=== PATIENT | male | born 1970 | race Caucasian/White ===

== ENCOUNTER → 2021-01-01 | Outpatient (CLI) | payer BC ==
--- NOTE | 2021-01-01 08:42 | CT ---
EXAMINATION TYPE: CT iac wo con DATE OF EXAM: 01/01/2021 COMPARISON: NONE HISTORY: Left ear hearing loss CT DLP: 150 mGycm. Automated Exposure Control for Dose Reduction was Utilized. TECHNIQUE: CT scan of internal auditory canal is performed without contrast, thin cut axial images ar e obtained, coronal reformatted images are also reviewed. FINDINGS: The external auditory canals are patent bilaterally. Mastoid air cells show no evidence of abnormal opacification bilaterally. The middle ear ossicles are symmetric and unremarkable. There is no evidence of suspicious surroundi ng soft tissue density to suggest cholesteatoma. The scutum is preserved bilaterally. The cochlea and the semicircular canals are symmetric . There is nonvisualized overlying bone involvi ng superior semicircular canal seen best on on coronal images 24 through 106, asymmetric versus the o pposite right side. Vestibular aqueduct and internal carotid canal appear unremarkable. Temporomandibular joints are maintained bilaterally. Mild mucosal thickening inferior bilateral maxil pao sinuses and anterior ethmoid sinuses bilaterally. Visualized portion brain parenchyma is felt wi thin normal limits. Globes are intact bilaterally. 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
== END ==
LOC: RADCTMAIN 07:51
PROVIDERS: ATTEND Otolaryngology
DX: H91.92 Unspecified hearing loss, left ear (principal)
CPT/HCPCS: 70480

== ENCOUNTER 2021-09-05 05:51 | Emergency (ER) | payer BC ==
[2021-09-05] MEDS ORDERED: ACETAMINOPHEN TAB 500 MG TAB PO STA (06:02)
[2021-09-05] MEDS ORDERED: SODIUM CHLORIDE 0.9% 50 ML IVPB ONE (06:30)
[2021-09-05] MEDS ORDERED: BAMLANIVIMAB (EUA) 700 MG, ETESEVIMAB (EUA) 1,400 MG in SODIUM CHLORIDE 0.9% 50 ML IVPB ONE (06:30)
--- NOTE | 2021-09-05 06:34 | ED ---
General Adult HPI - General Chief complaint: Upper Respiratory Infection Stated complaint: COVID+ Time Seen by Provider: 09/05/21 06:02 Source: patient Mode of arrival: ambulatory Limitations: no limitations - History of Present Illness Initial comments: 50-year-old male with a past medical history of presents to the emergency room for antibody infusion. Patient tested positive for Guzman virus yesterday after developing symptoms Friday night. Patient has been congested and has headaches. He has had low-grade fevers. He has been taking Motrin, no Tylenol yet. Patient was vaccinated for Guzman virus. Patient denies shortness of breath, minimal tightness. Denies chest pain. Patient has no other complaints at this time including shortness of breath, chest pain, abdominal pain, nausea or vomiting, headache, or visual changes. - Related Data Home Medications Medication Instructions Recorded Confirmed Escitalopram [Lexapro] 10 mg PO DAILY 11/29/14 11/29/14 Omeprazole [PriLOSEC] 10 mg PO AC-BRKFST 11/29/14 11/29/14 Previous Rx's Medication Instructions Recorded Hydrocodone/Acetaminophen [Secretary 1 each PO Q6HR PRN #20 tab 11/29/14 5-325] Ibuprofen [Motrin] 800 mg PO Q6HR PRN #20 tab 11/29/14 Orphenadrine [Norflex] 100 mg PO Q12H #7 tablet.er 11/29/14 Allergies Allergy/AdvReac Type Severity Reaction Status Date / Time No Known Allergies Allergy Verified 09/05/21 05:59 Review of Systems ROS Statement: Those systems with pertinent positive or pertinent negative responses have been documented in the HPI. ROS Other: All systems not noted in ROS Statement are negative. Past Medical History Past Medical History: No Reported History Additional Past Medical History / Comment(s): Covid 09/09, History of Any Multi-Drug Resistant Organisms: None Reported Past Surgical History: Tonsillectomy Additional Past Surgical History / Comment(s): left shoulder Past Psychological History: No Psychological Hx Reported Smoking Status: Never smoker Past Alcohol Use History: Occasional Past Drug Use History: None Reported General Exam Limitations: no limitations General appearance: alert, in no apparent distress Head exam: Present: atraumatic Eye exam: Present: normal appearance, PERRL, EOMI. Absent: scleral icterus, conjunctival injection ENT exam: Present: normal exam, mucous membranes moist Neck exam: Present: normal inspection, full ROM. Absent: tenderness Respiratory exam: Present: normal lung sounds bilaterally. Absent: respiratory distress, wheezes Cardiovascular Exam: Present: regular rate, normal rhythm, normal heart sounds Course Vital Signs 09/05/21 05:55 Temperature 100.4 F H Pulse Rate 100 Respiratory 20 Rate Blood Pressure 157/96 O2 Sat by Pulse 96 Oximetry Medical Decision Making - Medical Decision Making Vitals are stable. Patient is 96% on room air. He does have a fever of 100.4, was given Tylenol. At this time discussed antibodies the patient and he does feel that he would like to do these. These were ordered. Strict return power eters were discussed such as shortness of breath. He will return here for any worsening symptoms. He will otherwise follow up with his doctor. Disposition Clinical Impression: COVID-19 Disposition: HOME SELF-CARE Condition: Good Instructions (If sedation given, give patient instructions): Coronavirus Disease 2019 (COVID-19) Additional Instructions: Take Motrin and Tylenol alternating every 3 hours for fever control. Drink plenty of fluids. Take vitamin C, D, and zinc [id number]. Follow up with your doctor. If you develop worsening symptoms or shortness of breath return to the emergency room. Is patient prescribed a controlled substance at d/c from ED?: No Referrals: Katherine Harman III, MD [Primary Care Provider] - 1-2 days Time of Disposition: 06:33
[2021-09-05 07:44] VITALS: BP 139/81; PULSE 89; RESP 16; TEMP 98.4
== END 2021-09-05 08:29 | disposition home or self-care (01) ==
LOC: EC 05:51
DX: U07.1 COVID-19 (principal)
CPT/HCPCS: 99284; 96360; J3490

== ENCOUNTER 2021-11-08 06:50 | Day surgery (SDC) | payer OTHER ==
[2021-11-05 12:48] VITALS: BMI 26.2
[2021-11-08] MEDS ORDERED: SODIUM CHLORIDE 0.9% 500 ML 500 ML IV ONE (07:02)
[2021-11-08 07:11] VITALS: RESP 16; TEMP 97.7
[2021-11-08] MEDS ORDERED: fentaNYL (PF) 50 MCG/ML 2 ML AMP ONE (09:30)
[2021-11-08] MEDS: BENZOCAINE SPRAY 1 CAN TOPICAL ONE ×2 (09:40→09:42)
[2021-11-08] MEDS: fentaNYL (PF) 50 MCG/ML 2 ML AMP IV ONE ×2 (09:51→09:53)
[2021-11-08] MEDS ORDERED: MIDAZOLAM 2 MG/2 ML VIAL IV ONE (09:52)
[2021-11-08] MEDS: MIDAZOLAM 2 MG/2 ML VIAL IV ONE ×2 (09:53→09:54)
--- NOTE | 2021-11-08 10:22 | P.PCN ---
Date of Procedure: 11/08/21 Operative Findings: TRANSESOPHAGEAL ECHOCARDIOGRAM TICKET BROKER: OLVIN CHINCHILLA MD, RPVI INDICATION: This is a very pleasant 51-year-old gentleman who was diagnosed recently with moderate to severe mitral regurgitation. The transesophageal echocardiogram is for further clarification. SEDATION: Conscious sedation with sedation of 15 minutes COMPLICATION: None PROCEDURE DESCRIPTION: After obtaining an informed consent, the patient was brought to transesophageal echocardiogram room. Pulse oximetry and heart monitors were attached to the patient. The patient throat was sprayed using lidocaine. The patient was turned into left lateral position. After that a bite guard was placed. After an appropriate conscious sedation was initiated, the transesophageal echocardiogram was advanced through a bite guard into the mid esophagus. A 2-D echocardiogram images, color Doppler images, continuous wave images, pulse-wave images, of various cardiac structure were performed. After that the transesophageal echocardiogram probe was advanced into the stomach and fixed to obtain transgastric view was. The probe was brought into the mid esophagus. Inter-atrial septum was interrogated using 2D images, color Doppler images, and then contrast study. After that transesophageal echocardiogram was withdrawn out and upon withdrawing the descending thoracic aorta all the way up to the arch was evaluated. FINDING: The left ventricular dimension appeared to be within normal limits. Left ventricular systolic function appeared to be in the range of 55-60%. Right ventricular dimension and systolic function appeared to be within normal limits. The left and right atrium appears to be mildly dilated. The left atrial appendage appeared to be free from any thrombus. The intra-atrial septum appeared to be intact. The aortic valve is trileaflet valve without stenosis with mild insufficiency. 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 The proximal eyes with the loss of the surface area was 1 cm with Cleocin curiosity of 50 cm/s. There was reversal flow in the right lower pulmonary vein Tricuspid valve appears to have mild tricuspid regurgitation also there was mild pulmonic insufficiency identified. 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 The PISA was more than 1 cm at placing velocity of 50 cm/s. There was reversal flow in the right lower pulmonary vein as well. #2 trileaflet aortic valve with evidence of mild aortic insufficiency. #3 normal left ventricular dimension. The left ventricular ejection fraction was 55-60% #4 normal right ventricular dimension and systolic function #5 intact interatrial septum without any evidence of shunt #6 normal left atrial appendage without any thrombus #7 mildly dilated aortic root #8 no evidence of pericardial effusion
[2021-11-08 15:32] VITALS: BP 140/79; PULSE 77
== END 2021-11-08 11:15 | disposition home or self-care (01) ==
LOC: CATHCVL 06:50
PROVIDERS: ATTEND Internal Medicine Interventional Cardiology
DX: I08.0 Rheumatic disorders of both mitral and aortic valves (principal); Z20.822 Contact with and (suspected) exposure to COVID-19; Z79.899 Other long term (current) drug therapy; Z82.49 Family history of ischemic heart disease and other diseases of the circulatory system
CPT/HCPCS: 93312; 93320; 93325; 87635; J2250; J3010

== ENCOUNTER → 2022-01-09 | Outpatient (CLI) | payer OTHER ==
[2022-01-09 13:55] LABS: HCT 46.4 % (39.6-50.0); HGB 15.1 g/dL (13.0-17.0); MCH 29.8 pg (27.0-32.0); MCHC 32.5 g/dL (32.0-37.0); MCV 91.5 fL (80.0-97.0); Mean Platelet Volume 10.5 fL (9.5-12.2); NRBC Per 100 WBC 0 /100 WBCS (0.0-0.0); Platelet Count 200 X 10*3/uL (140-440); RBC 5.07 X 10*6/uL (4.40-5.60); RDW 14.6 % (11.5-14.5); WBC 5.08 X 10*3/uL (4.50-10.00)
[2022-01-09 14:43] LABS: African American GFR (CKD) 97.7 (60.0-200.0); Anion Gap 10.5 mmol/L (10.00-18.00); Blood Urea Nitrogen 11.7 mg/dL (9.0-27.0); Carbon Dioxide 26.2 mmol/L (20.0-27.5); Non-African American GFR(CKD) 84.3 (60.0-200.0); Potassium 4.6 mmol/L (3.5-5.5)
== END | disposition home or self-care (01) ==
LOC: LABPAT 08:53
PROVIDERS: ATTEND Internal Medicine Interventional Cardiology
DX: Z01.812 Encounter for preprocedural laboratory examination (principal); I34.0 Nonrheumatic mitral (valve) insufficiency
CPT/HCPCS: 80051; 82565; 84520; 85027

== ENCOUNTER 2022-01-25 09:16 | Day surgery (SDC) | payer OTHER ==
[2022-01-24 09:31] VITALS: BMI 27.0
[~2022-01-25 09:16] MED LIST: ALPRAZolam 0.25 MG TAB PO PRN; ALPRAZolam 0.5 MG TAB PO PRN; ASPIRIN 325 MG TAB PO STA; ATORVASTATIN 80 MG TAB PO STA; NITROGLYCERIN SL TABS 0.4 MG TAB SUBLINGUAL PRN; SODIUM CHLORIDE 0.9% 1,000 ML in EMPTY BAG 1 BAG IV SCH
[2022-01-25] MEDS ORDERED: SODIUM CHLORIDE 0.9% 1,000 ML IV ONE (09:27)
[2022-01-25 09:36] VITALS: RESP 16
[2022-01-25] MEDS ORDERED: HEPARIN SODIUM 1,000 UN/ML (10ML VL) ONE (12:06)
[2022-01-25] MEDS ORDERED: VERAPAMIL 2.5 MG/ML 2 ML AMP ONE (12:06)
[2022-01-25] MEDS ORDERED: LIDOCAINE 1% INJ 10MG/ML (20 ML MDV) ONE (12:07)
[2022-01-25] MEDS ORDERED: MIDAZOLAM 2 MG/2 ML VIAL IVP ONE ×2 (12:13→12:18)
[2022-01-25] MEDS ORDERED: LIDOCAINE 1% INJ 10MG/ML (20 ML MDV) SQ ONE (12:15)
[2022-01-25] MEDS ORDERED: VERAPAMIL SYRINGE (5 MG/10 ML) INTRAARTER ONE (12:16)
[2022-01-25] MEDS ORDERED: HEPARIN SODIUM 1,000 UN/ML (10ML VL) IVP ONE (12:19)
[2022-01-25] MEDS ORDERED: IOPAMIDOL-370 125ML BTL INJ ONE (12:25)
[2022-01-25] MEDS ORDERED: RX INFO: IV CONTRAST WAS GIVEN 1 EACH MISC MISCELLANE PRN (12:31)
--- NOTE | 2022-01-25 12:34 | P.PCN ---
Date of Procedure: 01/25/22 Operative Findings: CARDIAC CATHETERIZATION PERFORMING PHYSICIAN: Mathew Ann MD, RPVI PROCEDURE PERFORMED: 1. Selective right and left coronary angiogram 2. Left heart catheterization INDICATION: Severe symptomatic mitral regurgitation the patient is in process of having mitral valve repair COMPLICATION: None APPROACH: Right radial artery LEVEL OF SEDATION: Moderate with a sedation length of 12 minutes PROCEDURE DESCRIPTION: After obtaining an informed consent, the patient was brought to cardiac syrup machine laborer. Local anesthesia was performed using lidocaine subcutaneously. The right radial artery was cannulated using Seldinger technique, the guidewire passed easily, following that we advanced a 5-Nigerien sheath dilator assembly, the wire and dilator were removed and sheath was flushed. Following that, 2 mg of verapamil along with 5000 unit heparin were given. Selective right and left coronary angiogram using a 6-Nigerien JR4 and JL 3.5 catheters. Following that we did left heart catheterization using 6-Nigerien pigtail cat heter. The procedure was completed there was no complication. SELECTIVE CORONARY ANGIOGRAM: The right coronary artery: Is a large caliber vessel and a dominant vessel. The RCA is angiographically normal. Distally bifurcates into PDA and PLV branches both appeared to be angiographically normal Left main: Is angiographically normal. Bifurcates into LCx and LAD The left circumflex: Is a large caliber vessel and nondominant vessel. The LCx graphically normal. Gives rises into the first, second, third obtuse marginal branches and full appeared to be angiographically normal. The left anterior descending artery: It is a large caliber vessel. Its angiographically normal. It gives rise to first and second diagonal branches and both appeared to be angiographically normal HEMODYNAMICS: The LVEDP was 16 mmHg without significant gradient across aortic valve CONCLUSION: 1. Normal coronary angiogram 2. Mildly elevated left-sided filling pressure POSTPROCEDURE MANAGEMENT: The patient is to proceed with mitral valve repair
[2022-01-25] MEDS ORDERED: SODIUM CHLORIDE 0.9% 1,000 ML IV SCH (12:45)
[2022-01-25 15:34] VITALS: BP 145/82; PULSE 70
== END 2022-01-25 15:36 | disposition home or self-care (01) ==
LOC: CATHCVL 09:16
PROVIDERS: ATTEND Internal Medicine Interventional Cardiology
DX: I34.0 Nonrheumatic mitral (valve) insufficiency (principal)
CPT/HCPCS: 93458; C1894; J2250; J2001; J1644; Q9967

== ENCOUNTER → 2022-02-26 | Outpatient (CLI) | payer OTHER ==
--- NOTE | 2022-02-26 18:05 | XR ---
EXAMINATION TYPE: XR chest 2V DATE OF EXAM: 02/26/2022 COMPARISON: None HISTORY: 51-year-old male I34.0 I34.1 R91.1 TECHNIQUE: Frontal and lateral views FINDINGS: Heart normal size. Mitral annuloplasty ring is noted. There is a [id number] right pleural effu nia with patchy opacity periphery of the right mid and lower lung. Slight reverse S-shaped undulatio n of the thoracic spine. Surgical material in the left glenoid. IMPRESSION: Small to moderate right pleural effusion. Adjacent patchy atelectasis and/or consolidation extends up to the right mid lung level.
== END | disposition home or self-care (01) ==
LOC: RADXRMAIN 09:30
PROVIDERS: ATTEND Family Medicine
DX: J90 Pleural effusion, not elsewhere classified (principal); J98.11 Atelectasis
CPT/HCPCS: 71046

== ENCOUNTER 2022-09-18 10:09 | Day surgery (SDC) | payer OTHER ==
[2022-09-18 10:58] VITALS: TEMP 97.1
[2022-09-18] MEDS ORDERED: LACTATED RINGERS 1,000 ML IV ONE (11:00)
[2022-09-18] MEDS ORDERED: LIDOCAINE 2% INJ 20 MG/ML (2 ML VIAL) ONE (12:13)
[2022-09-18] MEDS ORDERED: PROPOFOL 10 MG/ML 20 ML VIAL IV ONE (12:13)
--- NOTE | 2022-09-18 12:28 | P.PCN ---
Date of Procedure: 09/18/22 Procedure(s) Performed: BRIEF HISTORY: Patient is a 52-year-old pleasant white male scheduled for an elective colonoscopy as a part of screening for colon cancer. PROCEDURE PERFORMED: Colonoscopy. PREOPERATIVE DIAGNOSIS: Screening for colon cancer. IV sedation per Anesthesia. PROCEDURE: After informed consent was obtained, the patient, was brought into the endoscopy unit. IV sedation was administered by Anesthesia under continuous monitoring. Digital rectal examination was normal. Initially the Olympus CF-160 flexible video colonoscope was then inserted in the rectum, gradually advanced into the cecum without any difficulty. Careful examination was performed as the scope was gradually being withdrawn. Ileocecal valve and the appendiceal orifice were visualized and appeared normal. Prep was fair. Mucosa of the cecum, ascending colon, transverse colon, descending colon, sigmoid colon, and rectum appeared normal. Retroflexion was performed in the rectum and no lesions were seen. The patient tolerated the procedure well. IMPRESSION: Normal-appearing colon from rectum to cecum with no evidence of colorectal neoplasia. RECOMMENDATIONS: Findings of this examination were discussed with the patient as his family.. He was advised to have a repeat screening colonoscopy in 10 years.
[2022-09-18] MEDS ORDERED: LACTATED RINGERS 1,000 ML IV SCH (12:32)
[2022-09-18] MEDS ORDERED: LIDOCAINE 1% (10MG/ML) FOR IV START INTRADERMA PRN (12:32)
[2022-09-18 13:00] VITALS: BP 136/89; PULSE 66; RESP 16
== END 2022-09-18 13:20 | disposition home or self-care (01) ==
LOC: ORWHC2ENDO 10:09
PROVIDERS: ATTEND Internal Medicine Gastroenterology
DX: Z12.11 Encounter for screening for malignant neoplasm of colon (principal); I34.1 Nonrheumatic mitral (valve) prolapse; K21.9 Gastro-esophageal reflux disease without esophagitis; Z79.2 Long term (current) use of antibiotics; Z79.891 Long term (current) use of opiate analgesic; Z79.82 Long term (current) use of aspirin; Z79.899 Other long term (current) drug therapy
CPT/HCPCS: 45378; J2704; J2001

== ENCOUNTER → 2022-10-07 | Outpatient (CLI) | payer OTHER ==
--- NOTE | 2022-10-07 10:03 | CT ---
EXAMINATION TYPE: CT chest w con DATE OF EXAM: 10/07/2022 COMPARISON: Prior chest x-ray HISTORY: Solitary pulmonary nodule. History of mitral valve repair. CT DLP: 690 mGycm, Automated exposure control for dose reduction was used. CONTRAST: Performed injected with 100ml mL of Isovue 300. TECHNIQUE: Axial images were obtained at 5 mm thick sections. Reconstructed images are reviewed on [employer] computer in the coronal plane. FINDINGS: Portion of the thyroid visualized is normal. Some minimal streaky opacities in the periphery of the right lower lung field likely on basis of atel ectasis. No enlarged mediastinal or hilar adenopathy is evident. The ascending aorta diameter at the level o f the main pulmonary artery is 2.8 cm. The main pulmonary artery diameter at the bifurcation is 2.[address] sections are obtained through the upper abdomen. Abdomen is essentially unremarkable. IMPRESSIONS: 1. Streaky atelectasis or scarring right middle lobe. Follow-up chest CT 6 months.
== END | disposition home or self-care (01) ==
LOC: RADCTMAIN 08:13
PROVIDERS: ATTEND Family Medicine
DX: R91.1 Solitary pulmonary nodule (principal)
CPT/HCPCS: 71260; Q9967

== ENCOUNTER → 2023-04-11 | Outpatient (CLI) | payer BC ==
--- NOTE | 2023-04-11 10:28 | CT ---
EXAMINATION TYPE: CT chest w con DATE OF EXAM: 04/11/2023 COMPARISON: 10/07/2022 and 02/13/2022 HISTORY: 52-year-old male R91.1, Solitary pulmonary nodule. Patient having no complaints at time of s can. TECHNIQUE: Contiguous axial scanning of the chest after the administration of 100ml mL of Isovue 300. Coronal/sagittal reconstructions performed. CT DLP: 422.4mGycm. Automatic exposure control utilized for a dose reduction. FINDINGS: Heart normal size without pericardial effusion. Mitral annular calcifications noted. Ectatic aortic root at 3.9 cm. Aorta otherwise normal caliber with conventional tarsal branching anatomy. No thoracic lymphadenopathy by CT size criteria. Mild biapical pleural-parenchymal scarring. Some strandy scarring at the anterolateral right mid to l ower lung. Some additional strandy scarring at the posterior lung bases. Vague irregular density remains measuring 1.4 x 0.5 cm posterior right midlung, relatively unchanged. Given the size, annual surveillance follow-up recommended. Some minimal clustered tree-in-bud nodularity periphery of the right lower lobe, axial image 49 and 5 0. Tiny hiatal hernia. Borderline size spleen at 13.5 cm. Bones: Moderate degenerative disc disease midthoracic spine with multiple small Schmorl's nodes and l evoconvex scoliosis upper thoracic spine. IMPRESSION: 1. Scattered areas of prominent scarring in the mid and lower lungs. 2. A vague irregular density posterior right midlung unchanged at 1.4 x 0.5 cm for just over a year. An additional one-year follow-up surveillance exam is recommended. 3. Some minimal tree-in-bud nodularity at the periphery of the right lower lobe could represent a sma ll infectious/inflammatory focus/bronchiolitis. 4. Tiny hiatal hernia.
== END | disposition home or self-care (01) ==
LOC: RADCTMAIN 07:53
PROVIDERS: ATTEND Family Medicine
DX: J98.4 Other disorders of lung (principal); K44.9 Diaphragmatic hernia without obstruction or gangrene; R91.1 Solitary pulmonary nodule
CPT/HCPCS: 71260

== ENCOUNTER → 2024-04-30 | Outpatient (CLI) | payer BC ==
--- NOTE | 2024-05-02 12:12 | CT ---
EXAMINATION TYPE: CT chest w con DATE OF EXAM: 04/30/2024 COMPARISON: Clinical history HISTORY: f/u spot on lung CT DLP: 430.20 mGycm Automated exposure control for dose reduction was used. CONTRAST: CT scan of the chest is performed with IV Contrast, patient injected with 100ml mL of Isovue 300. FINDINGS: LUNGS: Stable right upper lobe pleural parenchymal scarring. No evidence for mass. No distinct pulmon sofia nodule. No infiltrate or effusion. MEDIASTINUM: There are no greater than 1 cm hilar or mediastinal lymph nodes. No pericardial effusi on is seen. Thoracic aorta is of normal caliber. The heart is not enlarged. UPPER ABDOMEN: No significant abnormality appreciated. OTHER: No additional significant abnormality is seen. IMPRESSION: Stable right upper lobe pleural parenchymal scarring. No evidence for mass.
== END | disposition home or self-care (01) ==
LOC: RADCTMAIN 07:15
PROVIDERS: ATTEND Family Medicine
DX: R93.89 Abnormal findings on diagnostic imaging of other specified body structures (principal); J98.4 Other disorders of lung
CPT/HCPCS: 71260; Q9967